=== PATIENT | female | born 1980 | race Caucasian/White ===

== ENCOUNTER 2018-07-18 20:03 | Emergency (ER) | payer MEDICAID, OTHER ==
[~2018-07-18] VITALS: Ht 160 cm; Wt 110.9 kg
[~2018-07-18 20:03] MED LIST: ACET1TAB40 PO; CEPH-443 PO; DICY10CA40 PO; IBUP-1542 PO; NAPR-985 PO
[2018-07-18 20:10] VITALS: Ht 160 cm; Wt 110.9 kg
[2018-07-18] MEDS ORDERED: SOD CHLORIDE 0.9% 500 ML IV STA (22:00)
[2018-07-18] MEDS ORDERED: LORAZEPAM 2 MG INJ IV ONE (22:30)
[2018-07-19 01:15] VITALS: BP 112/68; PULSE 80; RESP 25
[2018-07-19] MEDS ORDERED: ALPR0.5T PO (01:15)
--- NOTE | 2018-07-19 01:21 | ERD ---
ER Documentation Chief Complaint Chief Complaint cp, rosenthal, hand tingling x 3 days HPI This a 38 female palpitations headache and hand tingling for the past 3 days. Said she is been under a lot of stress lately and feels that this is related to her anxiety. She denies suicidal homicidal ideation. Denies auditory or visual hallucinations. Pain is mild to moderate in intensity with no exacerbating alleviating factors. ROS All systems reviewed and are negative except as per history of present illness. Medications Home Meds Active Scripts Alprazolam* (Xanax*) 0.5 Mg Tab, 0.5 MG PO Q8H PRN for ANXIETY, #14 TAB Prov:JODY PRINCE 07/19/18 Ibuprofen* (Motrin*) 600 Mg Tab, 600 MG PO Q6, #20 TAB Prov:ROSA ELENA MABRY MD 01/28/15 Discontinued Scripts Naproxen* (Naprosyn*) 500 Mg Tablet, 500 MG PO BID PRN for PAIN AND/OR INFL AMMATION, #30 TAB Prov:JODY WHITAKER PA-C 04/05/18 Dicyclomine HCl (Dicyclomine HCl) 10 Mg Capsule, 10 MG PO TID PRN for ABDOMINAL CRAMPING, #20 CAP Prov:JODY WHITAKER PA-C 04/05/18 Acetaminophen-Codeine* (Acetaminophen-Cod #3*) 300-30 Mg Tab, 1 TAB PO Q4H PRN for PAIN, #10 TAB Prov:ROSA ELENA MABRY MD 01/28/15 Cephalexin* (Keflex*) 500 Mg Capsule, 500 MG PO QID for 10 Days, CAP Prov:ROSA ELENA MABRY MD 01/28/15 Allergies Allergies: Coded Allergies: No Known Allergy (Unverified , 07/19/18) PMhx/Soc Medical and Surgical Hx: pt denies Medical Hx, pt denies Surgical Hx History of Surgery: No Anesthesia Reaction: No Hx Neurological Disorder: No Hx Respiratory Disorders: No Hx Cardiac Disorders: No Hx Psychiatric Problems: No Hx Miscellaneous Medical Probl: No Hx Alcohol Use: No Hx Substance Use: No Hx Tobacco Use: No Smoking Status: Never smoker Physical Exam Vitals Vital Signs Date Temp Pulse Resp B/P (MAP) Pulse Ox O2 O2 Flow FiO2 Time Delivery Rate 07/19/18 80 25 112/68 98 Room Air 01:15 (83) 07/18/18 63 18 115/50 99 Room Air 22:30 (71) 07/18/18 98.8 70 18 167/75 97 20:10 (105) Physical Exam Const: No acute distress Head: Atraumatic Eyes: Normal Conjunctiva ENT: Normal External Ears, Nose and Mouth. Neck: Full range of motion. No meningismus. Resp: Clear to auscultation bilaterally Cardio: Regular rate and rhythm, no murmurs Abd: Soft, non tender, non distended. Normal bowel sounds Skin: No petechiae or rashes Back: No midline or flank tenderness Ext: No cyanosis, or edema Neur: Awake and alert Psych: Normal Mood and Affect Result Diagram: 07/18/18221907/18/182219 Results 24 hrs Laboratory Tests Test 07/18/18 22:20 07/18/18 22:29 White Blood Count 10.4 10^3/ul Red Blood Count 4.73 10^6/ul Hemoglobin 13.3 g/dl Hematocrit 41.6 % Mean Corpuscular Volume 87.9 fl Mean Corpuscular Hemoglobin 28.1 pg Mean Corpuscular Hemoglobin Concent 32.0 g/dl Red Cell Distribution Width 13.3 % Platelet Count 268 10^3/UL Mean Platelet Volume 9.8 fl Immature Granulocytes % 0.400 % Neutrophils % 51.5 % Lymphocytes % 38.5 % Monocytes % 7.9 % Eosinophils % 1.3 % Basophils % 0.4 % Nucleated Red Blood Cells % 0.0 /100WBC Immature Granulocytes # 0.040 10^3/ul Neutrophils # 5.4 10^3/ul Lymphocytes # 4.0 10^3/ul Monocytes # 0.8 10^3/ul Eosinophils # 0.1 10^3/ul Basophils # 0.0 10^3/ul Nucleated Red Blood Cells # 0.0 10^3/ul Sodium Level 142 mmol/L Potassium Level 4.0 mmol/L Chloride Level 109 mmol/L Carbon Dioxide Level 24 mmol/L Anion Gap 9 Blood Urea Nitrogen 17 mg/dl Creatinine 0.60 mg/dl Est Glomerular Filtrat Rate mL/min > 60 mL/min Glucose Level 99 mg/dl Calcium Level 8.9 mg/dl Total Bilirubin 0.1 mg/dl Direct Bilirubin 0.00 mg/dl Indirect Bilirubin 0.1 mg/dl Aspartate Amino Transf (AST/SGOT) 28 IU/L Alanine Aminotransferase (ALT/SGPT) 42 IU/L Alkaline Phosphatase 113 IU/L Troponin I < 0.012 ng/ml B-Type Natriuretic Peptide 17 PG/ML Total Protein 7.8 g/dl Albumin 4.1 g/dl Globulin 3.70 g/dl Albumin/Globulin Ratio 1.10 POC Beta HCG, Qualitative NEGATIVE Current Medications Medications Dose Sig/Neelam Start Time Status Last (Trade) Ordered Route PRN Stop Time Admin Dose Reason Admin Sodium 500 ml @ Q1H STAT 07/18/18 DC 07/18/18 Chloride 500 mls/hr IV 22:00 07/18/18 22:57 22:59 Lorazepam 1 mg ONCE ONCE 07/18/18 DC 07/18/18 (Ativan) IV 22:30 07/18/18 22:57 22:31 Procedures/MDM EKG: Rate/Rhythm: [Normal Sinus Rhythm] QRS, ST, T-waves: [No changes consistent w/ acute ischemia] Impression: [No evidence of ischemia or arrhythmia] Chest X-ray 1V Interpreted by me: Soft Tissue: No acute abnormalities Bones: No acute abnormalities Mediastinum/Cardiac Silhouette/Lungs: [No acute abnormalities] Medical decision making: Patient's thoracic symptoms have stabilized while in the department and are stable for outpatient follow up. Exam and work up not consistent w/ ischemia, arrhythmia, PE or dissection. Departure Diagnosis: Primary Impression: Chest pain Chest pain type: unspecified Qualified Codes: R07.9 - Chest pain, unspecified Condition: Fair Patient Instructions: Anxiety Reaction JODY PRINCE July 19, 2018 01:21
== END 2018-07-19 01:26 | disposition home or self-care (01) ==
LOC: E/R 20:03
DX: R07.9 Chest pain, unspecified (principal)
CPT/HCPCS: 36415; 71045; 80053; 81025; 83880; 84484; 85025; 93005; 96374; J2060; J7040; Z7502

== ENCOUNTER 2018-09-05 08:22 | Day surgery (SDC) | payer OTHER ==
[2018-09-02 14:56] VITALS: Ht 154.9 cm; Wt 112.7 kg
[~2018-09-05] VITALS: Ht 154.9 cm; Wt 112.7 kg
[2018-09-05] VITALS (15 sets, daily range): BP systolic 122–153; BP diastolic 61–88; PULSE 73–94; RESP 11–18
[~2018-09-05 08:22] MED LIST changes: -ACET1TAB40 PO; +ALPR0.5T PO; -CEPH-443 PO; -DICY10CA40 PO; -NAPR-985 PO
[2018-09-05] MEDS ORDERED: LACTATED RINGER'S 1,000 ML IV SCH (10:00)
[2018-09-05] MEDS ORDERED: BUPIVACAINE 0.25% (MPF) 30 ML INJ ONE (12:09)
[2018-09-05] MEDS ORDERED: POLYMYXIN/BACITRACIN 1L IRRIG ONE (12:09)
--- NOTE | 2018-09-05 12:29 | PREAC ---
Date/Time of Note Date/Time of Note DATE: 09/05/18 TIME: 12:27 Anesthesia Eval and Record Evaluation Time Pre-Procedure Interview DATE: 09/05/18 TIME: 12:27 Age 38 Sex female NPO: 8 hrs Preoperative diagnosis ventral hernia Planned procedure laproscopic ventral hernia repair Past Medical History Past Medical History: Includes Neuro: Other (migraines ) GI: Morbid obesity Psych: Anxiety Surgery & Anesthesia Issues No known issue Meds Anticoagulation: No Beta Alex within 24 hr: No Reason Beta Alex not given: Pt. not on B-Alex Active Scripts Alprazolam* (Xanax*) 0.5 Mg Tab, 0.5 MG PO Q8H PRN for ANXIETY, #14 TAB Prov:JODY PRINCE 07/19/18 Ibuprofen* (Motrin*) 600 Mg Tab, 600 MG PO Q6, #20 TAB Prov:ROSA ELENA MABRY MD 01/28/15 Current Medications Lactated Ringer's 1,000 ml @ 25 mls/hr Q24H IV ; Start 09/05/18 at 10:00 Meds reviewed: Yes Allergies Coded Allergies: No Known Allergy (Unverified , 09/05/18) Allergies Reviewed: Yes Labs/Studies Labs Reviewed: Reviewed by anesthesiologist Result Diagram: 09/05/18 0908 09/05/18 0908 Laboratory Tests 09/05/18 09:08 test: Negative Pre-procedure Exam Last vitals Vital Signs Date Temp Pulse Resp B/P (MAP) Pulse Ox O2 O2 Flow FiO2 Time Delivery Rate 09/05/18 97.8 73 150/76 97 Room Air 09:30 (100) Airway: Adequate mouth opening, Adequate thyromental dist Mallampati: Mallampati III Teeth: Normal Lung: Normal Heart: Normal ASA Physical Status ASA physical status: 2 Emergency: None Pre-operative Attestations Prior to commencing anesthesia and surgery, the patient was re-evaluated, there was verification of: *The patient's identity *The results of appropriate recent lab work and preoperative vital signs *The above evaluation not changing prior to induction *Anesthetic plan, risk benefits, alternative and complications discussed with patient/family; questions answered; patient/family understands, accepts and wishes to proceed. RANDA ROMERO DO Sep 05, 2018 12:29
[2018-09-05] MEDS ORDERED: hydrALAzine 20 MG INJ IV PRN (12:30)
[2018-09-05] MEDS ORDERED: HYDROmorphONE 1 MG/5 ML IV SYRINGE IV PRN ×2 (12:30)
[2018-09-05] MEDS ORDERED: OXYCODONE/ACETAMINOPHEN (5/325) TAB PO PRN ×2 (12:30)
[2018-09-05] MEDS ORDERED: ONDANSETRON 4 MG INJ IV PRN (12:30)
[2018-09-05] MEDS ORDERED: LABETALOL HCL 20MG INJ IV PRN (12:30)
[2018-09-05] MEDS ORDERED: LIDOCAINE 2% (SDV) 5 ML INJ ONE (12:33)
[2018-09-05] MEDS ORDERED: PROPOFOL 20 ML ONE ×2 (12:33→15:57)
[2018-09-05] MEDS ORDERED: ROCURONIUM 50 MG INJ ONE (12:33)
[2018-09-05] MEDS ORDERED: MIDAZOLAM 1 MG/ML 2 ML INJ ONE ×2 (12:33→15:57)
[2018-09-05] MEDS ORDERED: ROPIVACAINE 0.5 % 30 ML VIAL ONE ×2 (12:47→15:59)
[2018-09-05] MEDS ORDERED: CEFAZOLIN 1 GM INJ ONE (12:59)
[2018-09-05] MEDS ORDERED: ONDANSETRON 4 MG INJ ONE ×2 (13:00→16:14)
[2018-09-05] MEDS ORDERED: HYDROCODONE/APAP (5/325) TAB PO ONE (13:30)
[2018-09-05] MEDS ORDERED: SUGAMMADEX SODIUM 200 MG/2 ML VIAL IV ONE (13:32)
--- NOTE | 2018-09-05 13:34 | OPR ---
Date/Time of Note Date/Time of Note DATE: 09/05/18 TIME: 13:30 Operative Report Procedure Date: Sep 05, 2018 Preoperative Diagnosis incarcerated ventral hernia Postoperative Diagnosis same Operation/Procedure Performed 1. laparoscopic incarcerated ventral hernia repair with mesh 15 x 15 cm prolene 2. laparoscopic extensive lysis of adhesions 3. therapeutic injection of subcutaneous local anesthesia Surgeon see signature line Collator none Anesthesia Type: general Estimated Blood Loss: 0 - 10 ml's Transfusion none Specimen none Grafts/Implants none Complications none Pt Condition Post Procedure: stable Indications This is a 38-year-old female with a incarcerated ventral hernia. She had prior lower abdominal incisions. She required surgical repair. Risks alternatives benefits and personal were discussed the patient. Potential complications including but not limited to bleeding infection mesh migration recurrence of hernia need for additional operations injury to surrounding areas were discussed the patient. Patient expressed understanding and consents to the operation. Procedure Description Patient is taken to the OR and prepped and draped in usual sterile fashion. Surgical time was performed. IV antibiotics given. Left upper quadrant 5 mm transverse incision was made at the 15 blade. Using a 5 mm optical trocar optical entry is performed. Pneumoperitoneum was established. Left flank 12 mm optical trochars placed under direct visualization. Left lower quadrant 5 mm optical trochars placed under direct visualization. Upon initial inspection there is incarcerated hernia and multiple adhesions from prior abdominal surgeries. Extensive laparoscopic lysis of adhesions performed meticulously dissecting out adhesions and from the anterior abdominal wall. After the clearance of the hernia the incarcerated hernia was then manually reduced. The fascial fascial edges are freshened. The fascial defect was then closed primarily using #1 Vicryl in interrupted fashion using Endo Close and laparoscopic techniques. This was closed primarily. After the defect is closed primarily underlay mesh was secured in place with 15 x 15 cm polypropylene mesh was secured strap. Underlay coverage of 45 cm was ensured in all directions. Good hemostasis status. All ports were removed under direct visualization. Skin is closed and skin faby. A tap block was provided the anesthesiology to begin the case. Dry dressings were applied. Shayna BILLINGSLEY Sep 05, 2018 13:34
--- NOTE | 2018-09-05 13:54 | PAC ---
Date/Time of Note Date/Time of Note DATE: 09/05/18 TIME: 13:53 Post-Anesthesia Notes Post-Anesthesia Note Last documented vital signs Vital Signs Date Temp Pulse Resp B/P (MAP) Pulse Ox O2 O2 Flow FiO2 Time Delivery Rate 09/05/18 98 85 18 155/69 100 Room Air 1353 Activity: WNL Respiratory function: WNL Cardiovascular function: WNL Mental status: Baseline Pain reasonably controlled: Yes Hydration appropriate: Yes Nausea/Vomiting absent: Yes RANDA ROMERO DO Sep 05, 2018 13:54
[2018-09-05] MEDS: HYDROmorphONE 1 MG/5 ML IV SYRINGE IV PRN ×2 (14:11→14:17)
[2018-09-05] MEDS ORDERED: FENTAnyl 50 MCG/ML VIAL ONE (15:57)
[2018-09-05] MEDS ORDERED: ETOMIDATE 20 MG INJ ONE (15:57)
[2018-09-05] MEDS ORDERED: LIDOCAINE 1% (MDV) 20 ML INJ ONE (15:57)
== END 2018-09-05 16:52 | disposition home or self-care (01) ==
LOC: SDS 08:22
PROVIDERS: ATTEND Surgery
DX: K43.6 Other and unspecified ventral hernia with obstruction, without gangrene (principal); E66.01 Morbid (severe) obesity due to excess calories; Z68.42 Body mass index [BMI] 45.0-49.9, adult
CPT/HCPCS: 49653; 80053; 84703; 85025; 85610; 85730; J0690; J1170; J2250; J2405; J2795; J3010; Z7512; Z7610

== ENCOUNTER 2018-10-10 20:52 | Emergency (ER) | payer OTHER ==
[~2018-10-10] VITALS: Ht 144.8 cm; Wt 112.9 kg
[~2018-10-10 20:52] MED LIST changes: +ACET325T33 PO; +MECL12.574 PO; +ONDA4TAB14 PO
[2018-10-10 20:55] VITALS: Ht 144.8 cm; Wt 112.9 kg
[2018-10-11] MEDS ORDERED: ONDANSETRON (ODT) 4 MG TAB ODT STA (00:35)
[2018-10-11] MEDS ORDERED: MECLIZINE 12.5 MG TAB PO ONE (01:00)
[2018-10-11 02:36] VITALS: BP 144/90; PULSE 68; RESP 18
--- NOTE | 2018-10-18 01:38 | ERD ---
ER Documentation Chief Complaint Chief Complaint DIZZINESS AND N/V X THIS MORNING. HPI 38-year-old female presenting to the emergency department complaining of vertigo since this morning. She states she feels the room spinning. When she sits still she feels improved. Associated symptoms include nausea. Symptoms are exacerbated when moving her head rapidly from side to side. She denies any headache, vomiting, neck pain, neck stiffness, abdominal pain, loss of consciousness, falls, or other symptoms or injuries at this time. ROS All systems reviewed and are negative except as per history of present illness. Medications Home Meds Active Scripts Ondansetron (Ondansetron Odt) 4 Mg Tab.rapdis, 4 MG PO Q6H PRN for NAUSEA AND/OR VOMITING, #10 TAB Prov:JODY WHITAKER PA-C 10/11/18 Meclizine Hcl* (Antivert*) 12.5 Mg Tab, 12.5 MG PO Q6H PRN for DIZZINESS, #20 TAB Prov:JODY WHITAKER PA-C 10/11/18 Alprazolam* (Xanax*) 0.5 Mg Tab, 0.5 MG PO Q8H PRN for ANXIETY, #14 TAB Prov:JODY PRINCE 07/19/18 Ibuprofen* (Motrin*) 600 Mg Tab, 600 MG PO Q6, #20 TAB Prov:ROSA ELENA MABRY MD 01/28/15 Allergies Allergies: Coded Allergies: No Known Allergy (Unverified , 09/05/18) PMhx/Soc Medical and Surgical Hx: pt denies Medical Hx History of Surgery: Yes (C-SEC X3, TUBAL LIGATION) Anesthesia Reaction: No Hx Neurological Disorder: No Hx Respiratory Disorders: No Hx Cardiac Disorders: No Hx Psychiatric Problems: No Hx Miscellaneous Medical Probl: Yes (recently had hernia repair) Hx Alcohol Use: Yes (SOCIALLY) Hx Substance Use: No Hx Tobacco Use: No (2 A MONTH) FmHx Family History: No diabetes Physical Exam Physical Exam Const: No acute distress Head: Atraumatic Eyes: Normal Conjunctiva ENT: Normal External Ears, Nose and Mouth. Neck: Full range of motion. No meningismus. Resp: Clear to auscultation bilaterally Cardio: Regular rate and rhythm, no murmurs Abd: Soft, non tender, non distended. Normal bowel sounds Skin: No petechiae or rashes Back: No midline or flank tenderness Ext: No cyanosis, or edema Neuro: M/S: Alert and oriented Face: EOMI, face and pharynx with normal sensation and function Motor: Normal strength throughout Sensation: Normal sensation throughout Speech: Normal Cerebel: Normal coordination Normal gait Normal finger to nose Psych: Normal Mood and Affect Results 24 hrs Current Medications Medications Dose Sig/Neelam Start Time Status Last (Trade) Ordered Route PRN Stop Time Admin Dose Reason Admin Meclizine 25 mg ONCE ONCE 10/11/18 DC 10/11/18 HCl PO 01:00 00:45 (Antivert) 10/11/18 01:01 Ondansetron 4 mg ONCE STAT 10/11/18 DC 10/11/18 HCl (Zofran ODT 00:35 00:46 Odt) 10/11/18 00:36 Procedures/MDM Patient's neurologic symptoms have been evaluated in the department and have stabilized. Patient is appropriate for outpatient management. No evidence of meningitis, intracranial bleed, seizure, stroke, or elevated intracranial pressure. Additionally, a HINTS exam was performed. The the patient had an abnormal Head Impulse test, with a quick saccade movement to catchup while maintaining a forward gaze. The patient also had a horizontal Nystagmus, indicative of an acute vestibular syndrome. The overall clinical picture does not suggest signs of a posterior stroke. Departure Diagnosis: Primary Impression: Vertigo Condition: Fair Patient Instructions: Vertigo, Unspecified [facility] Usted se rosenthal hecho un examen mdico de control que le indica que no est en loyda condicin que requiera tratamiento urgente en el Departamento de Emergencia. Un estudio ms profundo y el tratamiento de hatch condicin pueden esperar sin ningn riesgo hasta que usted sea atendida/o en el consultorio de hatch mdico o loyda clnica. Es responsabilidad suya arreglar loyda john para el seguimiento del yeyo. MANEJO DE CONDICIONES NO URGENTES EN EL FUTURO 1) Si usted tiene un mdico de atencin primaria: Usted debera llamar a hatch mdico de atencin primaria antes de venir al departamento de emergencia. Despus de las horas de consultorio, hatch doctor o hatch asociado/a est disponible por telfono. El mdico o enfermero de monica en el servicio telefnico puede asesorarle por eligio medio para atender el problema, o yeyo contrario se puede programar loyda john. 2) Si usted no tiene un mdico de atencin primaria: Llame al mdico o clnica de referencia que aparece abajo silvia las horas de consultorio para hacer loyda john para que le vean. CLINICAS: [place] [address] [phone] [facility] [phone] [place] [address] [phone] [place] [address] [phone] [place] [address] [phone] [facility]. [phone] Additional Instructions: Llame al doctor MAANA y amilcar loyda JOHN PARA DENTRO DE 1-2 ROPER.Dgale a la secretaria que nosotros le instruimos hacer esta john.Avise o llame si hatch condicin se empeora antes de la john. Regresa aqui si peor o no mejor. JODY WHITAKER PA-C Oct 18, 2018 01:38
== END 2018-10-11 02:37 | disposition home or self-care (01) ==
LOC: FTE 20:52
DX: R42 Dizziness and giddiness (principal); R11.0 Nausea
CPT/HCPCS: Z7502; Z7610; 99283

== ENCOUNTER 2018-10-22 13:02 | Emergency (ER) | payer OTHER ==
[~2018-10-22] VITALS: Ht 157.5 cm; Wt 100.0 kg
[2018-10-22 13:06] VITALS: BP 113/60; PULSE 67; RESP 18; Ht 157.5 cm; Wt 100.0 kg
--- NOTE | 2018-10-22 13:19 | ERD ---
ER Documentation Chief Complaint Chief Complaint AP X 3 DAYS HPI 38-year-old female, presents the emergency department, complaining of diffuse abdominal pain for 3 days, define as colicky, intermittent, 10/22, associated with nausea, subjective fever and general malaise. The patient denies diarrhea or constipation, no blood per rectum, no urinary symptoms, no chest pain or shortness of breath. ROS All systems reviewed and are negative except as per history of present illness. Medications Home Meds Active Scripts Acetaminophen* (Tylenol*) 325 Mg Tablet, 2 TAB PO Q6 PRN for PAIN AND OR ELEVATED TEMP, #20 TAB Prov:TRIP MAE MD 10/22/18 Ondansetron (Ondansetron Odt) 4 Mg Tab.rapdis, 4 MG PO Q6H PRN for NAUSEA AND/OR VOMITING, #10 TAB Prov:JODY WHITAKER PA-C 10/11/18 Meclizine Hcl* (Antivert*) 12.5 Mg Tab, 12.5 MG PO Q6H PRN for DIZZINESS, #20 TAB Prov:JODY WHITAKER PA-C 10/11/18 Alprazolam* (Xanax*) 0.5 Mg Tab, 0.5 MG PO Q8H PRN for ANXIETY, #14 TAB Prov:JODY PRINCE 07/19/18 Ibuprofen* (Motrin*) 600 Mg Tab, 600 MG PO Q6, #20 TAB Prov:ROSA ELENA MABRY MD 01/28/15 Allergies Allergies: Coded Allergies: No Known Allergy (Unverified , 09/05/18) PMhx/Soc History of Surgery: Yes (C-SEC X3, TUBAL LIGATION) Anesthesia Reaction: No Hx Neurological Disorder: No Hx Respiratory Disorders: No Hx Cardiac Disorders: No Hx Psychiatric Problems: No Hx Miscellaneous Medical Probl: Yes (recently had hernia repair) Hx Alcohol Use: Yes (SOCIALLY) Hx Substance Use: No Hx Tobacco Use: No (2 A MONTH) FmHx Family History: No diabetes, No coronary disease Physical Exam Vitals Vital Signs Date Temp Pulse Resp B/P (MAP) Pulse Ox O2 O2 Flow FiO2 Time Delivery Rate 10/22/18 97.1 67 18 113/60 99 13:06 (77) Physical Exam Const: No acute distress Head: Atraumatic Eyes: Normal Conjunctiva ENT: Normal External Ears, Nose and Mouth. Neck: Full range of motion. No meningismus. Resp: Clear to auscultation bilaterally Cardio: Regular rate and rhythm, no murmurs Abd: Guarded, tenderness to deep palpation predominantly in the mid abdomen, no definitive peritoneal signs. Skin: No petechiae or rashes Back: No midline or flank tenderness Ext: No cyanosis, or edema Neur: Awake and alert Psych: Normal Mood and Affect Result Diagram: 10/22/18 1343 10/22/18 1343 Results 24 hrs Laboratory Tests Test 10/22/18 13:43 10/22/18 13:53 White Blood Count 8.0 10^3/ul Red Blood Count 4.65 10^6/ul Hemoglobin 13.2 g/dl Hematocrit 41.2 % Mean Corpuscular Volume 88.6 fl Mean Corpuscular Hemoglobin 28.4 pg Mean Corpuscular Hemoglobin Concent 32.0 g/dl Red Cell Distribution Width 13.3 % Platelet Count 241 10^3/UL Mean Platelet Volume 9.7 fl Immature Granulocytes % 0.200 % Neutrophils % 45.8 % Lymphocytes % 42.7 % Monocytes % 9.5 % Eosinophils % 1.2 % Basophils % 0.6 % Nucleated Red Blood Cells % 0.0 /100WBC Immature Granulocytes # 0.020 10^3/ul Neutrophils # 3.7 10^3/ul Lymphocytes # 3.4 10^3/ul Monocytes # 0.8 10^3/ul Eosinophils # 0.1 10^3/ul Basophils # 0.1 10^3/ul Nucleated Red Blood Cells # 0.0 10^3/ul Urine Color YELLOW Urine Clarity SLIGHTLY CLOUDY Urine pH 5.0 Urine Specific [place] 1.027 Urine Ketones NEGATIVE mg/dL Urine Nitrite NEGATIVE mg/dL Urine Bilirubin NEGATIVE mg/dL Urine Urobilinogen NEGATIVE mg/dL Urine Leukocyte Esterase NEGATIVE Will/ul Urine Microscopic RBC 4 /HPF Urine Microscopic WBC 0 /HPF Urine Squamous Epithelial Cells MODERATE /HPF Urine Bacteria FEW /HPF Urine Mucus MODERATE /HPF Urine Hemoglobin 1+ mg/dL Urine Glucose NEGATIVE mg/dL Urine Total Protein NEGATIVE mg/dl Sodium Level 141 mmol/L Potassium Level 4.4 mmol/L Chloride Level 106 mmol/L Carbon Dioxide Level 29 mmol/L Anion Gap 6 Blood Urea Nitrogen 14 mg/dl Creatinine 0.55 mg/dl Est Glomerular Filtrat Rate mL/min > 60 mL/min Glucose Level 91 mg/dl Calcium Level 9.0 mg/dl Total Bilirubin 0.3 mg/dl Direct Bilirubin 0.00 mg/dl Indirect Bilirubin 0.3 mg/dl Aspartate Amino Transf (AST/SGOT) 56 IU/L Alanine Aminotransferase (ALT/SGPT) 75 IU/L Alkaline Phosphatase 86 IU/L Total Protein 7.4 g/dl Albumin 4.1 g/dl Globulin 3.30 g/dl Albumin/Globulin Ratio 1.24 Lipase 102 U/L POC Beta HCG, Qualitative NEGATIVE Current Medications Medications Dose Sig/Neelam Start Time Status Last (Trade) Ordered Route PRN Stop Time Admin Dose Reason Admin Sodium 500 ml @ Q1H STAT 10/22/18 DC 10/22/18 Chloride 500 mls/hr IV 13:34 13:51 10/22/18 14:33 Ondansetron 4 mg ONCE STAT 10/22/18 DC 10/22/18 HCl (Zofran IV 13:34 13:54 Inj) 10/22/18 13:38 Ketorolac 15 mg ONCE STAT 10/22/18 DC 10/22/18 Tromethamine IV 13:34 13:54 (Toradol) 10/22/18 13:38 Patient: KEON BELLO : 1980 Age: 38 Sex: F MR #: [id number] DOS: 10/22/18 1334 Ordering MD: TRIP MAE MD Location: [facility] Room/Bed: PROCEDURE: CT Abdomen and Pelvis without contrast. CLINICAL INDICATION: Abdominal pain. TECHNIQUE: CT scan of the abdomen and pelvis without contrast was performed on a multidetector high-resolution CT scanner. The patient was scanned without intravenous contrast. Coronal and sagittal reformatted images were obtained from the axial source images. Images were reviewed on a high-resolution PACS workstation. One or more of the following dose reduction techniques were used: Automated exposure control, adjustment of the mA and/or kV according to patient size, use of iterative reconstruction technique. DICOM images are available. The total exam CTDI equals 23.44 mGy and the total exam DLP equals 1352.27 mGy- cm. COMPARISON: CT from 04/05/2018 FINDINGS: CT ABDOMEN: Visualized lung bases: No significant infiltrate or pleural/pericardial effusion. The heart size is normal. Liver: The liver is enlarged measuring 21 cm and demonstrates diffusely decreased attenuation. No evidence of suspicious solid hepatic mass or intrahepatic ductal dilatation. Gallbladder and bile ducts: Unremarkable Spleen: Unremarkable. Pancreas: Unremarkable. No ductal dilatation, mass, or peripancreatic stranding. Adrenal glands: Unremarkable. Kidneys: No hydronephrosis, stones, or solid lesions seen. Vasculature: No abdominal aortic aneurysm. Negative IVC. Lymph nodes: No adenopathy. GI: There is no evidence of inflamed appendix. Negative terminal ileum and re ctum. No evidence of obstruction. Negative sigmoid colon. Peritoneal cavity: There is interval surgical repair of the previously seen fat- containing umbilical hernia with mesh and place. No free fluid or free air. CT PELVIS: : Normal appearing bladder, distal ureters and ureterovesiculal junctions. The pelvic organs are unremarkable. Peritoneal cavity: No free fluid or free air. Lymph nodes: No adenopathy. Osseous structures: No acute osseous injury. No lytic or blastic lesions. Other: None. IMPRESSION: 1. No evidence of acute abdominopelvic inflammatory process, mass or lymphadenopathy. 2. Hepatomegaly and hepatic steatosis. RPTAT: QQ .iMke Moore MD, MD Date Time Procedures/MDM Vital signs stable. Differential diagnosis include but not limited to: UTI, colitis, gastroenteritis, kidney stones, irritable bowel syndrome, inflammatory bowel syndrome, malabsorption syndrome, cholelithiasis, food intolerance, medication side effect, pancreatitis, diverticulitis, bowel obstruction. Physical examination and clinical presentation consistent most likely with abdominal pain, likely gastritis. During the ED course the patient remained stable, no new complaints. The patient received treatment with IV fluids and IV medications presenting overall improvement of the symptoms. Results and clinical impression discussed with the patient who agrees with management. The patient is stable to be treated outpatient and will be discharged home; some side effects of prescribed medications (headache, rash, nausea, vomiting, diarrhea, drowsiness, habituation, bleeding, hypertension, interactions with other medications) were reviewed. The patient was informed that the evaluation in the emergency department has been done to rule out an acute emergency, therefore, chronic conditions like malignancy or other diseases have not been evaluated; therefore, the patient was instructed to follow up with the primary care provider in the next 48h. If symptoms persist, worsen or new symptoms develop, then patient should return to the ED immediately. Instructions explained and given directly by me to the patient with acknowledgment and demonstrated understanding. Disclaimer: Inadvertent spelling and grammatical errors are likely due to EHR/dictation software use and do not reflect on the overall quality of patient care. Also, please note that the electronic time recorded on this note does not necessarily reflect the actual time of the patient encounter. Departure Diagnosis: Primary Impression: Abdominal pain Condition: Stable Additional Instructions: Muchas waylon por [facility] para hatch servicio. Esperamos que en hatch visita a la adela de emergencia hatch problema medico haya sido solucionado y que se sienta mucho mejor. Para estar seguros que hatch mejoria sigue en proceso, le pedimos el favor de hacer loyda vaughn de seguimiento medico con hatch doctor primario en los proximos 2-4 bentley. Lleve con usted estos documentos y las medicinas recetadas. Si jose sintomas empeoran, NO SE ESPERE, por favor regrese a adela de emergencia INMEDIATAMENTE. En yeyo que usted no tenga un mdico de atencin primaria: Llame al mdico o clnica comunitaria de referencia que aparece abajo silvia las horas de consultorio para hacer loyda vaughn para que le vean. CLINICAS: [facility] [phone] [facility] [phone] [facility] [phone] [facility] [phone] [facility] [phone] [id number] [facility] [phone] TRIP MCKEON MD Oct 22, 2018 13:19
[2018-10-22] MEDS ORDERED: ONDANSETRON 4 MG INJ IV STA (13:34)
[2018-10-22] MEDS ORDERED: SOD CHLORIDE 0.9% 500 ML IV STA (13:34)
[2018-10-22] MEDS ORDERED: KETOROLAC 15 MG INJ IV STA (13:34)
== END 2018-10-22 15:34 | disposition home or self-care (01) ==
LOC: FTE 13:02
DX: R10.9 Unspecified abdominal pain (principal)
CPT/HCPCS: 36415; 74176; 80053; 81001; 81025; 83690; 85025; 96361; 96374; 96375; J1885; J2405; J7040; Z7502